=== PATIENT | male | born 1950 ===

== ENCOUNTER 2021-10-04 11:34 | Outpatient (CLI) | payer MEDICARE, SELFPAY ==
--- NOTE | ~2021-10-04 | PE_ITS ---
EXAMINATION: PET skull to mid thigh DATE: 10/04/2021 14:43 INDICATION: Pleural plaque with presence of asbestos. TECHNIQUE: Blood glucose level was 92 mg/dL. 9.561 mCi of 18-fluorodeoxyglucose (18-FDG) was administ ered i.v. Low dose computed tomography (CT) images were acquired from the base of the brain to the pr oximal thighs for attenuation correction and anatomic localization. Automated exposure control was em ployed. Dose-length product (DLP) was 862 mGy-cm. Positron emission tomography (PET) images were acqu ired in the same distribution. COMPARISON: None FINDINGS: Head/neck: There is increased activity in the oral cavity, oropharynx, and glottis without CT correla te, likely physiologic. There are no pathologically enlarged lymph nodes. Chest: There are calcified pleural plaques bilaterally, which may be seen with asbestos exposure. The re is peripheral septal thickening bilaterally with a lower lung predominance, consistent with asbest osis. No pleural effusion. Calcified right hilar and mediastinal lymph nodes are consistent with old granulomatous disease. The heart size is normal. There are coronary artery calcifications. No pericar dial effusion. There is moderate thoracic spondylosis. There is mild chronic anterior wedging of mult iple vertebral bodies. Abdomen/pelvis/proximal thighs: The liver, gallbladder, spleen, pancreas, adrenal glands, and left ki dney are normal. Right kidney is absent. There are multiple ventral hernias, one of which contains no nobstructed colon. There is diverticulosis of the colon without evidence of diverticulitis. The prost ate is moderately enlarged. There are bilateral inguinal hernias containing fat. There are no patholo gically enlarged lymph nodes. There is no free intraperitoneal fluid. There is severe lumbar spondylo sis. IMPRESSION: 1. No evidence of malignancy. 2. Mild asbestosis. Reviewed, dictated and finalized at location B. EKEEPING/LAUNDRY
[2021-10-04 12:47] LABS: Glucose Point of Care 92 mg/dl (65-105)
== END 2021-10-04 11:35 | disposition home or self-care (01) ==
LOC: ANHIMG 11:51
PROVIDERS: PCP Internal Medicine; Visit Provider Nurse Practitioner
DX: J92.0 Pleural plaque with presence of asbestos (principal)
CPT/HCPCS: 78815; A9552